=== PATIENT | female | born 1950 | race Caucasian/White ===

== ENCOUNTER → 2016-06-29 | Outpatient (CLI) | payer MEDICARE, OTHER | LOC: MAMO 14:40 | DX: Z12.31 Encounter for screening mammogram for malignant neoplasm of breast (principal) | CPT/HCPCS: G0202 ==

== ENCOUNTER → 2021-01-04 | Outpatient (CLI) | payer MEDICARE, OTHER | LOC: CT 10:41 | DX: R63.4 Abnormal weight loss (principal); R53.83 Other fatigue | CPT/HCPCS: 36415; Q9967 ==

== ENCOUNTER 2021-01-23 16:01 | Emergency (ER) | payer MEDICARE, OTHER ==
[~2021-01-23] VITALS: Ht 160 cm; Wt 78.9 kg
== END 2021-01-23 18:45 | disposition home or self-care (01) ==
LOC: ER1 16:01
DX: U07.1 COVID-19 (principal); Z23 Encounter for immunization; I10 Essential (primary) hypertension; Z86.73 Personal history of transient ischemic attack (TIA), and cerebral infarction without residual deficits; Z90.710 Acquired absence of both cervix and uterus
CPT/HCPCS: 99283; M0243

== ENCOUNTER → 2021-02-17 | Day surgery (SDC) | payer MEDICARE, OTHER ==
[~2021-02-17] MED LIST: ATENOLOL100 MG PO; BUSPAR 10MG10 MG PO; DULOXETINE HCL60 MG PO; GABAPENTIN400 MG PO; LIPITOR TAB 2020 MG PO; NITROGLYCERIN0.4 MG SL; NORVASC5 MG PO; RANEXA1000 MG PO; TRAMADOL HCL50 MG PO; VITAMIN D250 MCG PO; VITAMIN D350 MCG PO
== END | disposition home or self-care (01) ==
LOC: OR 06:45
DX: Z12.11 Encounter for screening for malignant neoplasm of colon (principal); I10 Essential (primary) hypertension; E78.2 Mixed hyperlipidemia; F41.9 Anxiety disorder, unspecified; F32.A Depression, unspecified; K21.9 Gastro-esophageal reflux disease without esophagitis; G47.33 Obstructive sleep apnea (adult) (pediatric); G25.81 Restless legs syndrome; Z79.899 Other long term (current) drug therapy
CPT/HCPCS: J2001; J2405; J2704; J7030

== ENCOUNTER → 2021-05-25 | Outpatient (CLI) | payer MEDICARE, OTHER | LOC: RAD 17:27 | DX: M16.11 Unilateral primary osteoarthritis, right hip (principal) | CPT/HCPCS: 73501 ==

== ENCOUNTER → 2021-12-14 | Outpatient (CLI) | payer MEDICARE | LOC: HEART 5 08:30 | DX: I20.9 Angina pectoris, unspecified (principal); I27.20 Pulmonary hypertension, unspecified; I08.3 Combined rheumatic disorders of mitral, aortic and tricuspid valves; R94.39 Abnormal result of other cardiovascular function study | CPT/HCPCS: 78452; 93306; A9502; J2785 ==